=== PATIENT | male | born 1955 | race Caucasian/White ===

== ENCOUNTER → 2024-08-06 | Outpatient (CLI) | payer MEDICARE ==
[~2024-08-06] MED LIST: ATOR10; LISI5; METF500; OMEP20ER PO
[2024-08-06 13:43] LABS: Adenovirus F 40/41 Not Detected (NOT DETECT); Astrovirus Not Detected (NOT DETECT); Campylobacter Sp Not Detected (NOT DETECT); Cryptosporidium Not Detected (NOT DETECT); Cyclospora Cayetanensis Not Detected (NOT DETECT); E. Coli O157 Not Detected (NOT DETECT); Entamoeba Histolytica Not Detected (NOT DETECT); Enteroaggregative E. coli-EAEC Not Detected (NOT DETECT); Enteropathogenic E. coli-EPEC Not Detected (NOT DETECT); Enterotoxigenic E. coli-ETEC Not Detected (NOT DETECT); Giardia Lamblia Not Detected (NOT DETECT); Norovirus GI/GII Not Detected (NOT DETECT); Plesiomonas Shigelloides Not Detected (NOT DETECT); Rotavirus A Not Detected (NOT DETECT); Salmonella Sp Not Detected (NOT DETECT); Sapovirus Not Detected (NOT DETECT); Shiga Toxin-prod E. coli-STEC Not Detected (NOT DETECT); Shigella/Enteroin E. coli-EIEC Not Detected (NOT DETECT); Vibrio Cholerae Not Detected (NOT DETECT); Vibrio Sp Not Detected (NOT DETECT); Yersinia Enterocolitica Not Detected (NOT DETECT)
== END | disposition home or self-care (01) ==
LOC: LAB 08-05 07:11
PROVIDERS: Student in an Organized Health Care Education/Training Program
DX: R19.7 Diarrhea, unspecified (principal)
CPT/HCPCS: 87507

== ENCOUNTER → 2024-10-08 | Outpatient (CLI) | payer MEDICARE ==
[2024-10-14 11:39] LABS: CALPROTECTIN,FECAL 2490 ug/g (<=49)
== END | disposition home or self-care (01) ==
LOC: LAB 14:27 → LAB SHORT 14:27
PROVIDERS: Nurse Practitioner Family
DX: R10.84 Generalized abdominal pain (principal); R19.7 Diarrhea, unspecified
CPT/HCPCS: 83993

== ENCOUNTER 2025-01-07 08:11 | Day surgery (SDC) | payer MEDICARE ==
[~2025-01-07] VITALS: Ht 165.1 cm; Wt 75.2 kg
[~2025-01-07 08:11] MED LIST changes: +Lactated Ringer's 1,000 ML IV ONE; +propofoL 50 ML IV ONE
[2025-01-07] MEDS ORDERED: Vitamin B-12100 MCG (08:52)
[2025-01-07] MEDS ORDERED: Lactated Ringer's 1,000 ML IV ONE (09:25)
--- NOTE | 2025-01-07 10:05 | NUR ---
01/07/25 1005 EDEN UNGER STARTED WITH PURPLE SCOPE. CHANGED SCOPE OUT AT 1005 TO WHITE SCOPE PURPLE SCOPE NOT CLEAR
--- NOTE | 2025-01-07 11:02 | NUR ---
01/07/[address] TO SEND IN RX TO [facility] FOR PT TODAY.
[2025-01-07 15:00] VITALS: BP 106/84
== END 2025-01-07 10:55 | disposition home or self-care (01) ==
LOC: ORSCSDS 08:11
PROVIDERS: Internal Medicine Gastroenterology
PROC: 0DBH8ZX Excision of Cecum, Via Natural or Artificial Opening Endoscopic, Diagnostic (ICD-10-PCS; principal; 2025-01-07 09:30)
PROC: 0DBE8ZX Excision of Large Intestine, Via Natural or Artificial Opening Endoscopic, Diagnostic (ICD-10-PCS; principal; 2025-01-07 09:30)
DX: R10.84 Generalized abdominal pain (principal); R19.4 Change in bowel habit; R93.3 Abnormal findings on diagnostic imaging of other parts of digestive tract; R63.4 Abnormal weight loss; K63.5 Polyp of colon; E11.9 Type 2 diabetes mellitus without complications; K52.9 Noninfective gastroenteritis and colitis, unspecified; Z79.84 Long term (current) use of oral hypoglycemic drugs; Z79.899 Other long term (current) drug therapy
CPT/HCPCS: 82947; 88305; J2704; J7120

== ENCOUNTER 2025-08-03 09:37 | Day surgery (SDC) | payer MEDICARE ==
[~2025-08-03] VITALS: Ht 165.1 cm; Wt 82.4 kg
[~2025-08-03 09:37] MED LIST changes: +LOPERAMIDE212 PO; -Lactated Ringer's 1,000 ML IV ONE; +MESALAMINE DR400 MG PO; +MULTI-VITAMIN1 EAC2 PO; +Vitamin B-12100 MCG; -propofoL 50 ML IV ONE
[2025-08-03 11:43] VITALS: BP 115/90
== END 2025-08-03 11:30 | disposition home or self-care (01) ==
LOC: ORSCSDS 09:37
PROVIDERS: Internal Medicine Gastroenterology
PROC: 0DBN8ZX Excision of Sigmoid Colon, Via Natural or Artificial Opening Endoscopic, Diagnostic (ICD-10-PCS; principal; 2025-08-03 11:45)
PROC: 0DBE8ZX Excision of Large Intestine, Via Natural or Artificial Opening Endoscopic, Diagnostic (ICD-10-PCS; principal; 2025-08-03 11:45)
DX: K51.90 Ulcerative colitis, unspecified, without complications (principal); D12.5 Benign neoplasm of sigmoid colon; E11.9 Type 2 diabetes mellitus without complications; Z79.84 Long term (current) use of oral hypoglycemic drugs; Z79.899 Other long term (current) drug therapy
CPT/HCPCS: 82947; 88305; J2704; J7120